=== PATIENT | female | born 1945 | race Caucasian/White ===

== ENCOUNTER → 2016-12-16 | Outpatient (CLI) | payer OTHER, MEDICARE | END | disposition home or self-care (01) | LOC: C.LABMFLN 09:08 | PROVIDERS: ATTEND Family Medicine | DX: R10.9 Unspecified abdominal pain (principal) ==

== ENCOUNTER → 2017-01-08 | Outpatient (CLI) | payer OTHER, MEDICARE ==
[2017-01-08 13:34] LABS: URINE APPEARANCE CLEAR (CLEAR); URINE BILIRUBIN NEG (NEG); URINE COLOR YELLOW; URINE EPITHELIAL CELL AUTO 0-5 /lpf (0-5); URINE NITRITE NEG (NEG); URINE PH 5.5 (4.5-7.5); URINE SPECIFIC GRAVITY 1.017 (1.000-1.030); UROBILINOGEN NEG (NEG)
[2017-01-08 13:43] LABS: MANUAL MICROSCOPIC REQUIRED? NO; REVIEW REQ? NO
== END | disposition home or self-care (01) ==
LOC: C.LABMFLN 08:20
PROVIDERS: ATTEND Urology
DX: R39.9 Unspecified symptoms and signs involving the genitourinary system (principal)

== ENCOUNTER → 2017-03-21 | Outpatient (CLI) | payer OTHER, MEDICARE ==
[2017-03-21 13:17] LABS: BASO % 0.8 %; BASO ABS # 0.04 K/uL (0-0.2); COMPLETE YES; EOS % 3.8 %; HEMATOCRIT 42.1 % (37-47); IG% 0.2 %; LYMPH % 31.8 %; LYMPH ABS # 1.61 K/uL (1.2-3.4); MEAN CELL VOLUME 86.8 fL (80-100); MEAN CORPUSCULAR HEMOGLOBIN 29.1 pg (25-34); MEAN CORPUSCULAR HGB CONC 33.5 g/dl (32-36); MEAN PLATELET VOLUME 9.7 fL (7.4-10.4); MONO % 8.5 %; NEUT % 54.9 %; PLATELET COUNT 239 K/uL (130-400); RED BLOOD COUNT 4.85 M/uL (4.2-5.4); WHITE BLOOD COUNT 5.06 K/uL (4.8-10.8)
[2017-03-21 13:38] LABS: ALT/SGPT 29 U/L (12-78); AMYLASE 50 U/L (25-115); BLOOD UREA NITROGEN 16 mg/dl (7-18); BUN/CREATININE RATIO 19.9 (10-20); CARBON DIOXIDE 27 mmol/L (21-32); CHLORIDE 106 mmol/L (98-107); GLUCOSE 133 mg/dl (70-99); POTASSIUM 3.7 mmol/L (3.5-5.1); SODIUM 141 mmol/L (136-145)
[2017-03-21 13:43] LABS: ALB/GLOB RATIO 1.1 (0.9-2); ALKALINE PHOSPHATASE 63 U/L (45-117); AST/SGOT 22 U/L (15-37)
== END | disposition home or self-care (01) ==
LOC: C.LABMFLN 09:10
PROVIDERS: ATTEND Family Medicine
DX: R07.89 Other chest pain (principal)

== ENCOUNTER → 2017-10-31 | Outpatient (CLI) | payer OTHER, MEDICARE ==
[2017-10-31 12:39] LABS: BASO % 1.3 %; BASO ABS # 0.06 K/uL (0-0.2); EOS % 3.2 %; EOS ABS # 0.15 K/uL (0-0.5); HEMATOCRIT 41.7 % (37-47); HEMOGLOBIN 13.8 g/dL (12.0-16.0); IG# 0.01 K/uL (0.00-0.02); LYMPH % 31.2 %; LYMPH ABS # 1.48 K/uL (1.2-3.4); MEAN CELL VOLUME 88.5 fL (80-100); MEAN CORPUSCULAR HEMOGLOBIN 29.3 pg (25-34); MEAN CORPUSCULAR HGB CONC 33.1 g/dl (32-36); MEAN PLATELET VOLUME 10.3 fL (7.4-10.4); MONO % 9.7 %; MONO ABS # 0.46 K/uL (0.11-0.59); NEUT % 54.4 %; NEUT ABS # 2.58 K/uL (1.4-6.5); PLATELET COUNT 231 K/uL (130-400); RED CELL DISTRIBUTION WIDTH CV 12.9 % (11.5-14.5); RED CELL DISTRIBUTION WIDTH SD 41.1 fL (36.4-46.3); WHITE BLOOD COUNT 4.74 K/uL (4.8-10.8)
[2017-10-31 13:34] LABS: ALBUMIN 3.8 gm/dl (3.4-5.0); ALKALINE PHOSPHATASE 66 U/L (45-117); BLOOD UREA NITROGEN 19 mg/dl (7-18); CALCIUM 9.1 mg/dl (8.5-10.1); CARBON DIOXIDE 30 mmol/L (21-32); CREATININE 0.75 mg/dl (0.60-1.20); GLUCOSE 104 mg/dl (70-99); POTASSIUM 3.8 mmol/L (3.5-5.1); SODIUM 139 mmol/L (136-145)
[2017-10-31 13:43] LABS: ALT/SGPT 34 U/L (12-78); AST/SGOT 21 U/L (15-37); CHOLESTEROL 194 mg/dl (0-200); LDL CHOLESTEROL CALCULATED 119 mg/dl; TOTAL PROTEIN 7.5 gm/dl (6.4-8.2)
== END | disposition home or self-care (01) ==
LOC: C.LABMFLN 09:06
PROVIDERS: ATTEND Family Medicine
DX: I10 Essential (primary) hypertension (principal); E78.5 Hyperlipidemia, unspecified; E03.9 Hypothyroidism, unspecified

== ENCOUNTER 2020-04-13 14:29 | Inpatient (IN) ==
--- NOTE | 2020-04-13 15:06 | XRay Report ---
XR chest 1V portable HISTORY: 75 years-old Female Chest Pain acute atypical chest pain COMPARISON: None TECHNIQUE: Portable AP view of the chest FINDINGS: Cardiac silhouette is moderately enlarged. Calcified plaque of the thoracic aortic arch. No pneumotho rax, large pleural effusion or overt pulmonary edema. Minimal bibasilar densities suggest probable at electasis. Degenerative changes of the shoulders and spine. Findings are suggestive prior partial res ection of the distal clavicles. Surgical anchors project over the left greater tuberosity. Convex rig ht curvature of the midthoracic spine. IMPRESSION: No acute process. ACT 112: Negative or not required by law. The above report was generated using voice recognition software. It may contain grammatical, syntax o r spelling errors. Electronically signed by: Emir Albarado M.D. 04/13/2020 3:05 PM
[2020-04-13 15:41] LABS: Basophils # (auto) 0.04 K/uL (0-0.2); Basophils % (auto) 0.6 %; Eosinophils % (auto) 1.5 %; Hematocrit (blood only) 41.1 % (37-47); Hemoglobin 13.8 g/dL (12.0-16.0); Immature Granulocytes # (auto) 0.01 K/uL (0.00-0.02); Immature Granulocytes % (auto) 0.1 %; Lymphocytes # (auto) 2.52 K/uL (1.2-3.4); Lymphocytes % (auto) 37.7 %; Mean Corpuscular Hemoglobin 28.7 pg (25-34); Mean Corpuscular Hgb Conc 33.6 g/dL (32-36); Mean Corpuscular Volume 85.4 fL (80-100); Monocytes # (auto) 0.48 K/uL (0.11-0.59); Monocytes % (auto) 7.2 %; Neutrophils # (auto) 3.53 K/uL (1.4-6.5); Neutrophils % (auto) 52.9 %; Platelet Count 241 K/uL (130-400); RDW Coefficient of Variation 12.8 % (11.5-14.5); RDW Standard Deviation 40.3 fL (36.4-46.3); Red Blood Count 4.81 M/uL (4.2-5.4); White Blood Count 6.68 K/uL (4.8-10.8)
[2020-04-13 16:06] LABS: Alanine Aminotransferase 34 U/L (12-78); Albumin Level 3.8 gm/dl (3.4-5.0); Alkaline Phosphatase 85 U/L (45-117); Aspartate Aminotransferase 25 U/L (15-37); BUN Creatinine Ratio 23.7 (10-20); Bilirubin,Total 0.5 mg/dl (0.2-1); Blood Urea Nitrogen 18 mg/dl (7-18); Carbon Dioxide 28 mmol/L (21-32); Chloride 107 mmol/L (98-107); Creatinine Clr Calc Pharmacy 63.3 ml/min; Est GFR (Non-African American) 78.5; Globulin 3.7 gm/dl (2.5-4.0); Glucose 147 mg/dl (70-99); Lipase 85 U/L (73-393); Potassium 3.5 mmol/L (3.5-5.1); Sodium 141 mmol/L (136-145); Total Protein 7.5 gm/dl (6.4-8.2); Troponin I < 0.015 ng/ml (0-0.045)
[2020-04-13 17:38] LABS: D Dimer 400 ug/L FEU (0-500); Partial Thromboplastin Ratio 0.9; Partial Thromboplastin Time 26.2 Seconds (21.0-31.0); Prothrombin Time 10.9 Seconds (9.0-12.0)
--- NOTE | 2020-04-13 17:40 | Emergency Department Note ---
Impression & Plan Substernal chest pain ED Provider Note NAME: ZENOBIA PERRY AGE: 75 SEX: F ARRIVES VIA: Walk-In INFORMANT: [Patient] ED PROVIDER(S): Govind Denise MD CHIEF COMPLAINT: Chest pain PLAN: Disposition: Admitted Condition: [Good] MEDICAL DECISION MAKING: Patient presented with exertional chest pain. Her EKG was unremarkable. The patient had a unremarkable CBC, chemistry panel, troponin and d-dimer. Chest x- ray negative. Given her family history and exertional chest discomfort further management in the hospital was felt to be appropriate for cardiac rule out and consideration for stress testing. The patient was pain-free during her time in the emergency department. She was given aspirin. Consultation was made with internal medicine for further evaluation. Triage Nursing notes reviewed and agree them. Vital Signs: reviewed and remarkable for [no significant abnormalities] Differential diagnosis: Cardiac ischemia, aortic dissection, pulmonary embolism, pneumothorax, pneumonia, pericarditis, myocarditis, esophageal rupture, GERD, cholecystitis, pancreatitis, musculoskeletal, as well as other pathologies. ER treatment provided: Oral aspirin Diagnostics interpreted by me: ECG:Rate: 98 Rhythm:Normal sinus [place]:Normal QRS:Normal ST segements:No elevation or depression. Nonspecific ST Other:No PACs or PVCs Cardiac Monitoring:Cardiac monitoring ordered by me: The patient was placed on continuous cardiac monitoring and observed. It revealed a normal sinus rhythm at 81 beats per minute without ectopy or evidence of dysrhythmia. Laboratory studies: [See below]unremarkable CBC, chemistry panel, d-dimer, coags, troponin Imaging studies: Chest x-ray. Findings: A chest x-ray was performed and revealed no pneumothorax, effusion, infiltrate, pulmonary edema, free air under the diaphragm, or wide mediastinum. Impression: No acute disease. Consultation(s): [none] HPI: The patient is a 75 year old female who presents to the Emergency Room with complaints of exertional chest pain. This started 4 days ago and is progressing. The patient also notes the following associated symptoms, back and shoulder pain, nausea. The patient has taken aspirin for relieving factors. Current pain is rated as 0/10. Pt denies LOC, headache, fevers, chills, diaphoresis, visual changes, neck pain, breathing difficulties, nausea, vomiting, abdominal pain, back pain, melena, hematochezia, urinary symptoms, numbness, weakness, lymphadenopathy, rash, or other complaints. ROS: See above HPI for pertinent positives & negatives. A total of [10] systems reviewed and were otherwise negative. PAST MEDICAL HISTORY:[See Below] hyperlipidemia PAST SURGICAL HISTORY:[See Below] FAMILY HISTORY:[See Below] SOCIAL HISTORY:[See Below] negative smoking HOME MEDICATIONS:[See Below] ALLERGIES:[See Below] VITALS:[See Below] PHYSICAL EXAMINATION: GENERAL: Awake, alert, well-appearing, in no distress HENT: Normocephalic, atraumatic. Oropharynx unremarkable. EYES: Normal conjunctiva. Sclera non-icteric. NECK: Inspection normal. Non-tender. Supple. No nuchal rigidity. FROM. No m asses. RESPIRATORY: Clear to auscultation. No wheezes. No rales. Normal respiratory effort. CARDIAC: Normal rate. Normal rhythm. No murmurs. No rubs. Extremities warm and well perfused. Pulses equal. No JVD. GI: Soft, non-distended. No tenderness to palpation. No rebound or guarding. No masses. RECTAL: Deferred. MUSCULOSKELETAL: Atraumatic. Chest examination reveals no tenderness. The back is symmetrical on inspection without obvious abnormality. There is no CVA tenderness to palpation. No joint edema. LOWER EXTREMITIES: Calves are equal size bilaterally and non-tender. No edema. No discoloration. NEURO: Normal sensorium. No sensory or motor deficits noted. SKIN: No rash or jaundice noted. ED COURSE: [Critical Care:] [None] Govind Denise MD Past Med/Surg History Medical History Acid reflux disease (Chronic) Benign essential hypertension (Chronic) Carotid atherosclerosis (Chronic) H/O radioactive iodine thyroid ablation Hyperlipidemia (Chronic) Hypothyroidism (Chronic) PSVT (paroxysmal supraventricular tachycardia) (Chronic) Syrinx of spinal cord (Chronic) Type 2 diabetes mellitus Surgical History H/O knee surgery H/O rotator cuff surgery History of bladder surgery S/P cholecystectomy S/P colonoscopy S/P hysterectomy Family History Father Coronary heart disease Mother Coronary heart disease Diabetes Brother Diabetes Sister Diabetes Unknown Kidney stones Social History Preferred Language: Yakut Feels Safe at Home: Yes Smoking Status: Former smoker Allergies Allergies Allergy/AdvReac Type Severity Reaction Status Date / Time Cephalosporins Allergy Unknown Unknown Verified 04/13/20 16:24 CEPHALEXIN HCL (Generic Allergy Unknown Y Uncoded 04/13/20 16:24 Allergy) KEFLEX=HIVES Allergy Unknown Unknown Uncoded 04/13/20 16:24 Home Meds Home Medications Medication Instructions Recorded Confirmed fluticasone propionate 2 sprays INTRANASAL DAILY PRN 04/13/20 04/13/20 levothyroxine 150 mcg PO .QSUNDAY 04/13/20 04/13/20 Previous Rx's Medication Instructions Recorded multivitamin 1 tab PO DAILY #90 tab 05/04/19 levothyroxine 125 mcg tablet 125 mcg PO .COMPLEX #90 tab 12/27/19 omeprazole 20 mg capsule,delayed 20 mg PO DAILY #90 cap 12/27/19 release lisinopril 20 1 tab PO DAILY #90 tab 01/21/20 mg-hydrochlorothiazide 12.5 mg tablet meloxicam 7.5 mg tablet 7.5 mg PO DAILY PRN #90 tab 03/27/20 Results & Data (ED) Vital Signs Vital Signs - 24 hr 04/13/20 14:36 04/13/20 15:52 04/13/20 17:12 Temperature 36.7 C Temperature Source Oral Pulse Rate 101 H 86 Pulse Rate [Apical] 86 79 Pulse Rhythm Regular Pulse Rhythm [Apical] Regular Pulse Strength [Apical] Normal Respiratory Rate 18 16 20 Respiratory Effort / Characteristics Non-Labored Spontaneous Non-Labored Spontaneous Non-Labored Spontaneous Respiratory Depth Normal Normal Normal Respiratory Pattern Regular Regular Regular Blood Pressure 155/81 H Blood Pressure [Right Arm] 144/62 H 138/88 Blood Pressure Mean 105 Blood Pressure Mean [Right Arm] 89 104 Blood Pressure Position Sitting Blood Pressure Position [Right Arm] Sitting Sitting Pulse Oximetry 96 96 93 Oxygen Delivery Method Room Air Room Air Room Air Sepsis Recent Fever Within 48 Hours No Sepsis New/Unexplained Change in Mental Status No Sepsis Action Taken by Nursing No Action Required Laboratory Data Result diagrams: 04/13/20 15:25 04/13/20 15:25 Lab Results 04/13/20 04/13/20 04/13/20 Range/Units 15:25 15:25 15:25 WBC 6.68 (4.8-10.8) K/uL RBC 4.81 (4.2-5.4) M/uL Hgb 13.8 (12.0-16.0) g/dL Hct 41.1 (37-47) % MCV 85.4 (80-100) fL MCH 28.7 (25-34) pg MCHC 33.6 (32-36) g/dL RDW Std Deviation 40.3 (36.4-46.3) fL RDW Coeff of Chris 12.8 (11.5-14.5) % Plt Count 241 (130-400) K/uL MPV 10.0 (7.4-10.4) fL Immature Gran % (Auto) 0.1 % Neut % (Auto) 52.9 % Lymph % (Auto) 37.7 % [place] % (Auto) 7.2 % Eos % (Auto) 1.5 % Baso % (Auto) 0.6 % Neut # (Auto) 3.53 (1.4-6.5) K/uL Lymph # (Auto) 2.52 (1.2-3.4) K/uL [place] # (Auto) 0.48 (0.11-0.59) K/uL Eos # (Auto) 0.10 (0-0.5) K/uL Baso # (Auto) 0.04 (0-0.2) K/uL Immature Gran # (Auto) 0.01 (0.00-0.02) K/uL PT Cancelled INR Cancelled APTT Cancelled PTT Ratio Cancelled D-Dimer Cancelled Sodium 141 (136-145) mmol/L Potassium 3.5 (3.5-5.1) mmol/L Chloride 107 (98-107) mmol/L Carbon Dioxide 28 (21-32) mmol/L Anion Gap 6.0 (3-11) BUN 18 (7-18) mg/dl Creatinine 0.75 (0.6-1.2) mg/dl Est Cr Clr Drug Dosing 63.3 ml/min Est GFR ( Amer) 91.0 Est GFR (Non-Af Amer) 78.5 BUN/Creatinine Ratio 23.7 H (10-20) Glucose 147 H (70-99) mg/dl Calcium 9.0 (8.5-10.1) mg/dl Magnesium 2.0 (1.8-2.4) mg/dl Total Bilirubin 0.5 (0.2-1) mg/dl AST 25 (15-37) U/L ALT 34 (12-78) U/L Alkaline Phosphatase 85 (45-117) U/L Troponin I < 0.015 (0-0.045) ng/ml Total Protein 7.5 (6.4-8.2) gm/dl Albumin 3.8 (3.4-5.0) gm/dl Globulin 3.7 (2.5-4.0) gm/dl Albumin/Globulin Ratio 1.0 (0.9-2) Lipase 85 (73-393) U/L Specimen Hemolysis 04/13/20 Range/Units 17:10 WBC (4.8-10.8) K/uL RBC (4.2-5.4) M/uL Hgb (12.0-16.0) g/dL Hct (37-47) % MCV (80-100) fL MCH (25-34) pg MCHC (32-36) g/dL RDW Std Deviation (36.4-46.3) fL RDW Coeff of Chris (11.5-14.5) % Plt Count (130-400) K/uL MPV (7.4-10.4) fL Immature Gran % (Auto) % Neut % (Auto) % Lymph % (Auto) % [place] % (Auto) % Eos % (Auto) % Baso % (Auto) % Neut # (Auto) (1.4-6.5) K/uL Lymph # (Auto) (1.2-3.4) K/uL [place] # (Auto) (0.11-0.59) K/uL Eos # (Auto) (0-0.5) K/uL Baso # (Auto) (0-0.2) K/uL Immature Gran # (Auto) (0.00-0.02) K/uL PT 10.9 INR 1.0 APTT 26.2 PTT Ratio 0.9 D-Dimer 400 Sodium (136-145) mmol/L Potassium (3.5-5.1) mmol/L Chloride (98-107) mmol/L Carbon Dioxide (21-32) mmol/L Anion Gap (3-11) BUN (7-18) mg/dl Creatinine (0.6-1.2) mg/dl Est Cr Clr Drug Dosing ml/min Est GFR ( Amer) Est GFR (Non-Af Amer) BUN/Creatinine Ratio (10-20) Glucose (70-99) mg/dl Calcium (8.5-10.1) mg/dl Magnesium (1.8-2.4) mg/dl Total Bilirubin (0.2-1) mg/dl AST (15-37) U/L ALT (12-78) U/L Alkaline Phosphatase (45-117) U/L Troponin I (0-0.045) ng/ml Total Protein (6.4-8.2) gm/dl Albumin (3.4-5.0) gm/dl Globulin (2.5-4.0) gm/dl Albumin/Globulin Ratio (0.9-2) Lipase (73-393) U/L Specimen Hemolysis Administered Medications Atorvastatin Calcium (Lipitor) 40 mg PO QPM [facility] Stop: 05/13/20 20:59 Last Admin: 04/13/20 21:09 Dose: 40 mg Documented by: [id number] Heparin Sodium/Dextrose (Heparin Sodium/Dextrose) 25,000 units in 500 mls @ 16 mls/hr IV .Q24H [facility]; Protocol Stop: 05/13/20 20:44 Last Admin: 04/13/20 21:10 Dose: 800 units/hr, 16 mls/hr Documented by: [id number] Cosigned by: [id number] Insulin Aspart (Novolog Flexpen) 0 units SC ACHS [facility] Stop: 05/13/20 20:59 Last Admin: 04/13/20 21:09 Dose: Not Given Documented by: [id number] Discontinued Medications Aspirin (Aspirin) 324 mg PO NOW STA Stop: 04/13/20 18:48 Last Admin: 04/13/20 20:03 Dose: 324 mg Documented by: [id number] Heparin Sodium (Porcine) 4,000 (units/ Syringe) 4 mls @ 10 mls/min IV ONE ONE Stop: 04/13/20 21:01 Last Admin: 04/13/20 21:09 Dose: 10 mls/min Documented by: [id number] Cosigned by: [id number] Lisinopril (Zestril) 20 mg PO NOW ONE Stop: 04/13/20 21:01 Last Admin: 04/13/20 21:26 Dose: 20 mg Documented by: [id number] Metoprolol Tartrate (Lopressor) 25 mg PO ONE STA Stop: 04/13/20 19:25 Last Admin: 04/13/20 20:35 Dose: Not Given Documented by: [id number] Metoprolol Tartrate (Lopressor) Confirm Administered Dose 50 mg .ROUTE .STK-MED ONE Stop: 04/13/20 20:00 Last Admin: 04/13/20 20:04 Dose: 25 mg Documented by: [id number] Potassium Chloride (Klor-Con M20) 20 meq PO ONE ONE Stop: 04/13/20 20:31 Last Admin: 04/13/20 21:09 Dose: 20 meq Documented by: [id number] Discharge Plan Visit Data *Final* Discharge Date/Time: 04/13/20 19:55 Chief Complaint: Chest Pain Stated Complaint: CHEST PAINS, BACK PAIN, REFERRED BY DOC ED Provider: Govind Denise Discharge Problem: Substernal chest pain Patient Disposition: Admitted As Inpatient Discharge Instructions Interventions: ED Discharge Assessment Last Done: 04/13/20 19:55
--- NOTE | 2020-04-13 18:32 | History & Physical Report ---
Date of Service April 13, 2020 Assessment & Plan (1) Unstable angina: No chest pain at rest but having increasing frequency of chest pain over the past 4 days with resolution at rest on each occasion. No current chest pain. Troponin negative. Highly suspicious based on history and risk factors. Heart score 6 (moderate) Admit to PCU - monitor on telemetry for arrhythmias overnight Serial troponins overnight - expect to be negative based on history Stop meloxicam ASA 324mg PO chew in ER, then 81mg QAM Start metoprolol tartrate 25mg PO NOW, then twice daily Heparin low-dose IV drip with bolus Nitroglycerin SL and EKG with chest pain overnight Heart healthy, low-sodium, type II diabetic diet Consult cardiology in AM, NPO after midnight for consideration of cardiac catheterization (discussed with patient I would not recommend a stress test given her chest pain history and risk factors, but will leave the final decision up to cardiology) (2) Chest pain: Given consistency of exertional chest pain relieved with rest this is highly suspicious to be unstable angina as above has increasing in frequency, severity and duration. Lower likelihood of gastrointestinal cause given history of Weber's esophagus and on one occasion associated with food and belching. If cardiac cath unremarkable will consider this etiology further. (3) Hyperlipidemia: September 2019 - total cholesterol 200, LDL 117, HDL 48. Given likelihood of unstable angina will start atorvastatin 40 mg p.o. at bedtime with repeat lipid panel in a.m. (4) Benign essential hypertension: Stop her usual lisinopril/HCTZ in favor of optimizing cardiac medications Continue lisinopril 20 mg p.o. daily Start metoprolol tartrate 25 mg twice daily (5) Claudication: Classical symptoms of peripheral vascular disease. Although she reports a calf pain down to poor footwear with fibrosis benign tissue growths on her ankle. Recommend outpatient ultrasound arterial Doppler with her PCP or knitter mechanic (6) Type 2 diabetes mellitus: HbA1c diagnostic of diabetes at 6.6 in September. Will repeat in a.m. Patient reportedly told she has borderline diabetes and did not want to go on medication previously. We had an extensive discussion regarding metformin use coming out of hospital if coronary artery disease is confirmed. If HbA1c greater than 5.7 would recommend metformin started on discharge if coronary artery disease confirmed. Discussed weight loss of 5 to 10% with almost certainly bring her out of a diabetic range. BSG AC at bedtime while inpatient with NovoLog sliding scale for correction only. Add basal dose if total daily dose greater than 10 units. Type II diabetic diet (7) Acid reflux disease: Switch omeprazole for pantoprazole as per hospital formulary (8) Hypothyroidism: Continue outpatient levothyroxine dosing No need for repeat TSH testing in the setting of unstable angina would not be enrollment representative (9) DVT prophylaxis: Heparin IV drip as above Admission and Anticipated Discharge Date Admission Date: 04/13/2020 History of Present Illness Chief Complaint: Chest pain Primary Care Provider: Kalpana Barr MD Kristen Jacobs is a 75 year old female with PMHx T2DM (borderline), hyperlipidemia, obesity, hypertension who presents to the ER with 4 days of exertional chest pain. She reports increasing severity, frequency and duration of this exertional pain over these 4 days. Last episode was today at 11:30am with minimal exertion (cutting hair). Longest time it has lasted is 10 minutes, always relieves with rest. Unknown how many episodes she is having a day but has been unable to exert herself significantly without the chest pain since it started 4 days ago. She was taking a daily aspirin for primary prevention up until 1 year ago. With this ongoing chest pain she has been taking aspirin 81mg PO usually twice daily. She has had one episode after eating an egg salad with relief with belching although this was only the one occasion and the rest have been very exertional related. She has a history of Weber's esophagus which resolved with omeprazole use (EGD was approximately 15 years ago). She reports her heartburn is under control with omeprazole and she has not been eating any exacerbating foods. Of note she also has claudication (bilateral calf pain on walking) which she has previously felt was her poor footwear with benign fibrous lumps in her ankles making her gait poor. This has been going on for at least the last year. She is a former smoker (although only for 9 months after her divorce), 1- pack/day, quit 1984. Hyperlipidemia - PCP recommended statin but patient refused. Diabetes, HbA1C recently diagnosed in September and refused metformin (she has heard too many bad things about this). Family history: Father with CAD ?started around 64-65yo angina, bypass Mother in 60s had a stroke Brother ?heart issue, no bypass or stents, diabetes, Sister - none Allergies Allergy/AdvReac Type Severity Reaction Status Date / Time Cephalosporins Allergy Unknown Unknown Verified 04/13/20 16:24 CEPHALEXIN HCL (Generic Allergy Unknown Y Uncoded 04/13/20 16:24 Allergy) KEFLEX=HIVES Allergy Unknown Unknown Uncoded 04/13/20 16:24 Home Medications Home Medications Medication Instructions Recorded Confirmed Type multivitamin 1 tab PO DAILY #90 tab 05/04/19 04/13/20 Rx levothyroxine 125 mcg tablet 125 mcg PO .COMPLEX #90 tab 12/27/19 04/13/20 Rx omeprazole 20 mg capsule,delayed 20 mg PO DAILY #90 cap 12/27/19 04/13/20 Rx release lisinopril 20 1 tab PO DAILY #90 tab 01/21/20 04/13/20 Rx mg-hydrochlorothiazide 12.5 mg tablet meloxicam 7.5 mg tablet 7.5 mg PO DAILY PRN #90 tab 03/27/20 04/13/20 Rx fluticasone propionate 2 sprays INTRANASAL DAILY PRN 04/13/20 04/13/20 History levothyroxine 150 mcg PO .QSUNDAY 04/13/20 04/13/20 History Past Med/Surg History Medical History Acid reflux disease (Chronic) Benign essential hypertension (Chronic) Carotid atherosclerosis (Chronic) H/O radioactive iodine thyroid ablation Hyperlipidemia (Chronic) Hypothyroidism (Chronic) PSVT (paroxysmal supraventricular tachycardia) (Chronic) Syrinx of spinal cord (Chronic) Type 2 diabetes mellitus Surgical History H/O knee surgery H/O rotator cuff surgery History of bladder surgery S/P cholecystectomy S/P colonoscopy S/P hysterectomy Family History Father Coronary heart disease Mother Coronary heart disease Diabetes Brother Diabetes Sister Diabetes Unknown Kidney stones Social History Preferred Language: Swedish Feels Safe at Home: Yes Smoking Status: Former smoker Review of Systems Review of Systems: All systems reviewed & are unremarkable except as noted in HPI & below Physical Exam Constitutional: well developed, well nourished and + morbidly obese; no acute distress Eyes: PERRL, conjunctivae normal, anicteric sclerae ENMT: external ear and nose normal, oropharynx normal Neck: trachea midline Respiratory: normal respiratory effort, lungs clear to auscultation Cardiovascular: Rate/Rhythm: regular rate and regular rhythm Heart Sounds: no murmur Vessels: posterior tibial pulses present, dorsalis pedis pulses present and radial pulses present; no JVD Extremities: normal capillary refill and + pedal edema (Trace bilateral); no calf tenderness Chest (Breasts): Additional Comments: Unable to reproduce chest pain on palpation Gastrointestinal (Abdomen): normal bowel sounds, soft, nontender, no hepatosplenomegaly Musculoskeletal: no cyanosis or clubbing, extremities motor strength 5/5 Skin: no rashes, warm and dry Neurologic: moves all extremities and awake; no focal motor deficits and not confused Speech / Cognition: normal speech Motor/Sensory: no tremor, no pronator drift and no sensory deficit Psychiatric: A+Ox3, euthymic affect Genitourinary: no CVA tenderness Lymphatic: no cervical or axillary lymphadenopathy Results & Data Results & Data ([facility]) Vital Signs (Past 12 Hours) Vital Signs Temp Pulse Pulse Resp BP BP Pulse Ox 04/13/20 17:12 79 20 138/88 93 04/13/20 15:52 86 86 16 144/62 H 96 04/13/20 14:36 36.7 C 101 H 18 155/81 H 96 Diagnostic Findings XR chest 1V portable IMPRESSION: No acute process. ECG Indication: chest pain Rate (beats per minute): 98 Rhythm: normal sinus Findings: + acute ischemic change (Mild nonspecific ST abnormalities (see below)) Comparison ECG Date: from (March 23, 2001) Change: the following changes noted (Very mild ST depression (non pathological) in V3 to V6 is new, dynamically improved on later EKG) Code Status & VTE Plan Code Status Full VTE Prophylaxis Plan VTE Prophylaxis will be ordered: Yes PG Care Time/CCT Total # of Minutes Spent Total Time Spent with Patient: Total time spent is greater than 50% in coordination of care (as documented) at patient's floor/unit and/or counseling patient: Coding Level of Care Code 73296 Initial Inpt Care Lvl 3 Diagnoses Unstable angina I20.0 Chest pain I20.0 Chest pain type: chest pain due to myocardial ischemia Ischemic chest pain type: unstable angina pectoris Hyperlipidemia E78.1 Hyperlipidemia type: pure hypertriglyceridemia Benign essential hypertension I10 Claudication I73.9 Type 2 diabetes mellitus E11.9 Diabetes mellitus complication status: without complication Diabetes mellitus detention insulin use: without termite exterminator use Acid reflux disease K21.9 Esophagitis presence: without esophagitis Hypothyroidism E89.0 Hypothyroidism type: postablative DVT prophylaxis Z29.9 (1) Type 2 diabetes mellitus Diabetes mellitus complication status: without complication Diabetes mellitus detention insulin use: without detention use Qualified Code(s): E11.9 - Type 2 diabetes mellitus without complications (2) Hyperlipidemia Hyperlipidemia type: pure hypertriglyceridemia Qualified Code(s): E78.1 - Pure hyperglyceridemia (3) Hypothyroidism Hypothyroidism type: postablative Qualified Code(s): E89.0 - Postprocedural hypothyroidism (4) Acid reflux disease Esophagitis presence: without esophagitis Qualified Code(s): K21.9 - Gastro- esophageal reflux disease without esophagitis (5) Chest pain Chest pain type: chest pain due to myocardial ischemia Ischemic chest pain type: unstable angina pectoris Qualified Code(s): I20.0 - Unstable angina
[2020-04-13] MEDS ORDERED: ASPIRIN CHEW 324 MG PO STA (18:47)
[2020-04-13] MEDS ORDERED: METOPROLOL TARTRATE 25 MG TAB PO STA (19:24)
[2020-04-13] MEDS ORDERED: METOPROLOL TARTRATE 50 MG TAB ONE (19:59)
[2020-04-13] MEDS ORDERED: CARBOHYDRATES FOR HYPOGLYCEMIA PO PRN (20:17)
[2020-04-13] MEDS ORDERED: GLUCAGON FOR INJ 1 MG VIAL SQ PRN (20:17)
[2020-04-13] MEDS ORDERED: ALUMINUM/MAGNESIUM SUSP 30 ML UDC PO PRN (20:17)
[2020-04-13] MEDS ORDERED: ACETAMINOPHEN 325 MG TAB PO PRN (20:17)
[2020-04-13] MEDS ORDERED: DEXTROSE 50% 50 ML SYRINGE IV PRN (20:17)
[2020-04-13] MEDS ORDERED: GLUCOSE 10 TABS/TUBE PO PRN (20:17)
[2020-04-13] MEDS ORDERED: POLYETHYLENE (MIRALAX) 17 GM PACK PO PRN (20:17)
[2020-04-13] MEDS ORDERED: MAGNESIUM HYDROXIDE SUSP 30 ML UDC PO PRN (20:17)
[2020-04-13] MEDS ORDERED: ONDANSETRON INJ 2 MG/ML 2 ML VIAL IV PRN (20:17)
[2020-04-13] MEDS ORDERED: GLUCOSE 40% GEL 15 GM TUBE PO PRN (20:17)
[2020-04-13] MEDS ORDERED: POTASSIUM CHLORIDE 20 MEQ TABCR PO ONE (20:30)
[2020-04-13] MEDS ORDERED: Heparin IV Low Dose WITH Bolus IV SCH (20:37)
[2020-04-13] MEDS ORDERED: NITROGLYCERIN SL 0.4 MG/TAB TAB SL PRN (20:40)
[2020-04-13] MEDS ORDERED: HEPARIN SODIUM/DEXTROSE 25,000 UNITS/500 ML BAG IV SCH (20:45)
[2020-04-13] MEDS ORDERED: HEPARIN IV BOLUS 4,000 UNITS in SYRINGE 0 ML IV ONE (21:00)
[2020-04-13] MEDS ORDERED: lisinopriL 20 MG TAB PO ONE (21:00)
[2020-04-13] MEDS ORDERED: ATORVASTATIN 40 MG TAB PO SCH (21:00)
[2020-04-13] MEDS: INSULIN ASPART 100 UNITS/ML 3 ML PEN SC SCH (21:09)
--- NOTE | 2020-04-14 05:08 | Electrocardiogram Report ---
Test Reason : Blood Pressure : / mmHG Vent. Rate : 098 BPM Atrial Rate : 098 BPM P-R Int : 172 ms QRS Dur : 088 ms QT Int : 354 ms P-R-T Axes : 066 018 037 degrees QTc Int : 451 ms Normal sinus rhythm Nonspecific ST abnormality Abnormal ECG When compared with ECG of 23-MAR-2001 16:36, Nonspecific ST abnormality is now Present Confirmed by Pedro Rodriguez [id number] on 04/14/2020 5:07:49 AM Referred By: Kalpana Barr Confirmed By:Pedro Rodriguez
[2020-04-14] MEDS ORDERED: LEVOTHYROXINE SODIUM 125 MCG TABLET PO SCH (06:30)
[2020-04-14 07:06] LABS: Basophils # (auto) 0.05 K/uL (0-0.2); Basophils % (auto) 0.9 %; Eosinophils # (auto) 0.19 K/uL (0-0.5); Eosinophils % (auto) 3.3 %; Hematocrit (blood only) 39.7 % (37-47); Hemoglobin 13.3 g/dL (12.0-16.0); Immature Granulocytes # (auto) 0.01 K/uL (0.00-0.02); Immature Granulocytes % (auto) 0.2 %; Lymphocytes # (auto) 2.56 K/uL (1.2-3.4); Lymphocytes % (auto) 44.8 %; Mean Corpuscular Hemoglobin 29.4 pg (25-34); Mean Corpuscular Hgb Conc 33.5 g/dL (32-36); Mean Corpuscular Volume 87.6 fL (80-100); Monocytes # (auto) 0.54 K/uL (0.11-0.59); Monocytes % (auto) 9.4 %; Neutrophils # (auto) 2.37 K/uL (1.4-6.5); Neutrophils % (auto) 41.4 %; Platelet Count 225 K/uL (130-400); RDW Standard Deviation 41.6 fL (36.4-46.3); Red Blood Count 4.53 M/uL (4.2-5.4); White Blood Count 5.72 K/uL (4.8-10.8)
[2020-04-14 07:16] LABS: Partial Thromboplastin Ratio 1.2; Partial Thromboplastin Time 33.4 Seconds (21.0-31.0)
[2020-04-14 07:26] LABS: Estimated Average Glucose 160 mg/dl; Hemoglobin A1C 7.2 % (4.5-5.6)
[2020-04-14 07:27] LABS: BUN Creatinine Ratio 22.9 (10-20); Blood Urea Nitrogen 16 mg/dl (7-18); Calcium 8.9 mg/dl (8.5-10.1); Carbon Dioxide 30 mmol/L (21-32); Chloride 108 mmol/L (98-107); Creatinine Clr Calc Pharmacy 67.7 ml/min; Est GFR (African American) 98.9; Est GFR (Non-African American) 85.4; Glucose 135 mg/dl (70-99); Sodium 143 mmol/L (136-145)
[2020-04-14 07:31] LABS: Chol HDL Ratio 4; Cholesterol 182 mg/dl (0-200); HDL Cholesterol 41 mg/dl; LDL Cholesterol Calculated 103 mg/dl; Triglycerides 190 mg/dl (0-150); Troponin I < 0.015 ng/ml (0-0.045); VLDL Cholesterol 38 mg/dl
[2020-04-14] MEDS: INSULIN ASPART 100 UNITS/ML 3 ML PEN SC SCH ×2 (08:23→13:40)
[2020-04-14] MEDS ORDERED: HEPARIN IV BOLUS 4,500 UNITS in SYRINGE 0 ML IV ONE (08:30)
[2020-04-14] MEDS ORDERED: lisinopriL 20 MG TAB PO SCH (09:00)
[2020-04-14] MEDS ORDERED: PANTOprazole 40 MG TAB PO SCH (09:00)
[2020-04-14] MEDS ORDERED: MULTIVITAMIN TAB PO SCH (09:00)
[2020-04-14] MEDS ORDERED: METOPROLOL TARTRATE 25 MG TAB PO SCH (09:00)
[2020-04-14] MEDS ORDERED: ASPIRIN 81 MG ECTAB PO SCH (09:00)
--- NOTE | 2020-04-14 09:03 | Cardiology Consultation ---
Date of Consultation April 14, 2020 Assessment & Plan (1) Chest pain: (2) Benign essential hypertension: ASSESSMENT/PLAN: 1. Chest pain: Her chest pain is atypical for ischemic heart disease. We discussed ischemic evaluation given her risk factors. Recommend stress echo rather than invasive approach given her atypical symptoms described today. Heparin drip can be discontinued. Her troponins are unremarkable. ECG without dynamic changes. 2. Hypertension: Blood pressure was initially elevated but has since normalized. Can continue current regimen. UPDATE Stress echo has been completed. There were no ischemic changes noted on stress echo imaging. Her exercise tolerance was below expected however she did not experience any chest discomfort and admits that that is the most strenuous exercise that she has done in some time. Given that her chest discomfort did not return during strenuous activity with normal stress echo imaging, would not pursue cardiac catheterization at this time. Recommend further evaluation for noncardiac chest pain. If her symptoms worsen or persist without identifiable cause, further evaluation could be considered at that time. 3. Disposition: Following stress echo which was recommended as above, no further inpatient cardiology evaluation recommended at this time. Further chest discomfort evaluation for noncardiac etiology can be performed by primary service verses PCP. Follow-up with cardiology on an as-needed basis. Patient care communicated with Dr. Rodriguez of the primary hospitalist service. Thank you for allowing me to participate in the care of your patient. Please call for any other questions or concerns. Sincerely, Chauncey Rodriguez M.D. History of Present Illness Reason for Consultation: Chest pain Requesting Physician: Dr. Cueva Attending Physician: Daniel Rodriguez DO History of Present Illness Mrs. Jacobs ('cross in') is a very pleasant 75-year-old female history significant for hypertension, dyslipidemia, and type 2 diabetes. She was hospitalized on 04/13/2020 for chest discomfort concerning for unstable angina and placed on a heparin drip by primary hospitalist service. Cardiology consultation was requested for her chest pain. Four days ago, on Friday, she noted a left sided chest discomfort beneath her left breast described as a jabbing or "needle" sensation. It occurred while laying in bed on her left side. She has had up and the chest discomfort resolved within minutes. She once again laid on her left side and it recurred. Repositioning resolved her symptoms. She took aspirin 81 mg. The next day, she had intermittent chest discomfort throughout the day all episodes lasting only a few minutes before spontaneously resolving. Then, separately, she noted mid back pain at rest intermittently. Her symptoms were nonexertional. Two days ago, she once again noted pain beneath her left breast while in the swimming pool, lasting only a few minutes before spontaneously resolving. She took aspirin 81 mg x2. 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 She also felt nauseated. She is currently chest pain-free. She denies radiation of the pain, diaphoresis, shortness of breath, or other associated symptoms. She denies palpitations, syncope, near-syncope, edema, or bleeding such as melena, hematochezia, or hematuria. She had been walking 1.5 miles at a time until approximately 1.5 months ago when she stopped due to the humid weather. She states that she has lipomas in her feet which causes discomfort when wearing shoes. This limits her exertion. She also states that her legs feel tired with ambulation. Admitting hospitalist service has recommended lower extremity arterial duplex to further investigate, as an outpatient. This can be followed up by her PCP. Review of systems: As above. Review of systems otherwise negative/unremarkable. Family history: Father had CABG in his 60s. Mother with stroke. Social history: She quit smoking years ago after approximately 3 pack years. No significant alcohol. No drugs. She lives at home with her . Her twin granddaughters also live at home with them. She has 2 sons. She is a hairdresser. She is unaccompanied today. Allergies Allergy/AdvReac Type Severity Reaction Status Date / Time Cephalosporins Allergy Unknown Unknown Verified 04/13/20 16:24 CEPHALEXIN HCL (Generic Allergy Unknown Y Uncoded 04/13/20 16:24 Allergy) KEFLEX=HIVES Allergy Unknown Unknown Uncoded 04/13/20 16:24 Home Medications Home Medications Medication Instructions Recorded Confirmed Type multivitamin 1 tab PO DAILY #90 tab 05/04/19 04/13/20 Rx levothyroxine 125 mcg tablet 125 mcg PO .COMPLEX #90 tab 12/27/19 04/13/20 Rx omeprazole 20 mg capsule,delayed 20 mg PO DAILY #90 cap 12/27/19 04/13/20 Rx release lisinopril 20 1 tab PO DAILY #90 tab 01/21/20 04/13/20 Rx mg-hydrochlorothiazide 12.5 mg tablet meloxicam 7.5 mg tablet 7.5 mg PO DAILY PRN #90 tab 03/27/20 04/13/20 Rx fluticasone propionate 2 sprays INTRANASAL DAILY PRN 04/13/20 04/13/20 History levothyroxine 150 mcg PO .QSUNDAY 04/13/20 04/13/20 History Patient History Medical History Acid reflux disease (Chronic) Benign essential hypertension (Chronic) Carotid atherosclerosis (Chronic) H/O radioactive iodine thyroid ablation Hyperlipidemia (Chronic) Hypothyroidism (Chronic) PSVT (paroxysmal supraventricular tachycardia) (Chronic) Syrinx of spinal cord (Chronic) Type 2 diabetes mellitus Surgical History H/O knee surgery H/O rotator cuff surgery History of bladder surgery S/P cholecystectomy S/P colonoscopy S/P hysterectomy Family History (Updated 04/14/20 @ 14:04 by Pedro Rodriguez MD) Father Coronary heart disease Mother Diabetes Stroke Brother Diabetes Sister Diabetes Unknown Kidney stones Social History Preferred Language: Arabic Feels Safe at Home: Yes Smoking Status: Former smoker Physical Exam Physical Exam: Gen.: No acute distress. Alert and oriented. HEENT: Anicteric sclera. Neck: No JVD. No bruits. Normal carotid upstrokes bilaterally. Cardiac: PMI was nonpalpable. No ventricular heave. Regular rate and rhythm. Normal S1-S2. No murmurs, rubs, or gallops. Pulmonary: Clear to auscultation bilaterally without wheezes, rales, or rhonchi. Abdomen: Soft, nontender, nondistended, with normoactive bowel sounds. No bruits noted. Extremities: 2+ radial pulses bilaterally. 2+ posterior tibialis pulses bilaterally. No edema or cyanosis. Psychiatric: Affect appears appropriate. Chest: Nontender to palpation. Results & Data ([facility]) Vital Signs (Past 12 Hours) Vital Signs Temp Pulse Pulse Resp BP Pulse Ox 04/14/20 07:38 36.3 C L 71 16 136/81 97 04/14/20 04:00 36.4 C L 56 L 16 135/85 94 04/14/20 00:45 74 04/14/20 00:22 36.6 C 72 16 176/95 H 94 Laboratory Results Laboratory Results - last 24 hr 04/13/20 04/13/20 04/13/20 15:25 15:25 15:25 WBC 6.68 RBC 4.81 Hgb 13.8 Hct 41.1 MCV 85.4 MCH 28.7 MCHC 33.6 RDW Std Deviation 40.3 RDW Coeff of Chris 12.8 Plt Count 241 MPV 10.0 Immature Gran % (Auto) 0.1 Neut % (Auto) 52.9 Lymph % (Auto) 37.7 Bucks % (Auto) 7.2 Eos % (Auto) 1.5 Baso % (Auto) 0.6 Neut # (Auto) 3.53 Lymph # (Auto) 2.52 Bucks # (Auto) 0.48 Eos # (Auto) 0.10 Baso # (Auto) 0.04 Immature Gran # (Auto) 0.01 PT Cancelled INR Cancelled APTT Cancelled PTT Ratio Cancelled D-Dimer Cancelled Sodium 141 Potassium 3.5 Chloride 107 Carbon Dioxide 28 Anion Gap 6.0 BUN 18 Creatinine 0.75 Est Cr Clr Drug Dosing 63.3 Est GFR ( Amer) 91.0 Est GFR (Non-Af Amer) 78.5 BUN/Creatinine Ratio 23.7 H Glucose 147 H POC Glucose Estimat Average Glucose Hemoglobin A1c Calcium 9.0 Magnesium 2.0 Total Bilirubin 0.5 AST 25 ALT 34 Alkaline Phosphatase 85 Troponin I < 0.015 Total Protein 7.5 Albumin 3.8 Globulin 3.7 Albumin/Globulin Ratio 1.0 Triglycerides Cholesterol LDL Cholesterol, Calc VLDL Cholesterol, Calc HDL Cholesterol Cholesterol/HDL Ratio Lipase 85 Specimen Hemolysis 04/13/20 04/13/20 04/13/20 17:10 21:08 23:13 WBC RBC Hgb Hct MCV MCH MCHC RDW Std Deviation RDW Coeff of Chris Plt Count MPV Immature Gran % (Auto) Neut % (Auto) Lymph % (Auto) Bucks % (Auto) Eos % (Auto) Baso % (Auto) Neut # (Auto) Lymph # (Auto) Bucks # (Auto) Eos # (Auto) Baso # (Auto) Immature Gran # (Auto) PT 10.9 INR 1.0 APTT 26.2 PTT Ratio 0.9 D-Dimer 400 Sodium Potassium Chloride Carbon Dioxide Anion Gap BUN Creatinine Est Cr Clr Drug Dosing Est GFR ( Amer) Est GFR (Non-Af Amer) BUN/Creatinine Ratio Glucose POC Glucose 127 H Estimat Average Glucose Hemoglobin A1c Calcium Magnesium Total Bilirubin AST ALT Alkaline Phosphatase Troponin I < 0.015 Total Protein Albumin Globulin Albumin/Globulin Ratio Triglycerides Cholesterol LDL Cholesterol, Calc VLDL Cholesterol, Calc HDL Cholesterol Cholesterol/HDL Ratio Lipase Specimen Hemolysis 04/14/20 04/14/20 04/14/20 06:54 06:54 06:54 WBC 5.72 RBC 4.53 Hgb 13.3 Hct 39.7 MCV 87.6 MCH 29.4 MCHC 33.5 RDW Std Deviation 41.6 RDW Coeff of Chris 13.0 Plt Count 225 MPV 10.0 Immature Gran % (Auto) 0.2 Neut % (Auto) 41.4 Lymph % (Auto) 44.8 Bucks % (Auto) 9.4 Eos % (Auto) 3.3 Baso % (Auto) 0.9 Neut # (Auto) 2.37 Lymph # (Auto) 2.56 Bucks # (Auto) 0.54 Eos # (Auto) 0.19 Baso # (Auto) 0.05 Immature Gran # (Auto) 0.01 PT INR APTT PTT Ratio D-Dimer Sodium 143 Potassium 4.0 Chloride 108 H Carbon Dioxide 30 Anion Gap 5.0 BUN 16 Creatinine 0.70 Est Cr Clr Drug Dosing 67.7 Est GFR ( Amer) 98.9 Est GFR (Non-Af Amer) 85.4 BUN/Creatinine Ratio 22.9 H Glucose 135 H POC Glucose Estimat Average Glucose 160 Hemoglobin A1c 7.2 H Calcium 8.9 Magnesium Total Bilirubin AST ALT Alkaline Phosphatase Troponin I < 0.015 Total Protein Albumin Globulin Albumin/Globulin Ratio Triglycerides 190 H Cholesterol 182 LDL Cholesterol, Calc 103 VLDL Cholesterol, Calc 38 HDL Cholesterol 41 Cholesterol/HDL Ratio 4 Lipase Specimen Hemolysis 04/14/20 04/14/20 04/14/20 06:54 07:13 12:27 WBC RBC Hgb Hct MCV MCH MCHC RDW Std Deviation RDW Coeff of Chris Plt Count MPV Immature Gran % (Auto) Neut % (Auto) Lymph % (Auto) Bucks % (Auto) Eos % (Auto) Baso % (Auto) Neut # (Auto) Lymph # (Auto) Bucks # (Auto) Eos # (Auto) Baso # (Auto) Immature Gran # (Auto) PT INR APTT 33.4 H PTT Ratio 1.2 D-Dimer Sodium Potassium Chloride Carbon Dioxide Anion Gap BUN Creatinine Est Cr Clr Drug Dosing Est GFR ( Amer) Est GFR (Non-Af Amer) BUN/Creatinine Ratio Glucose POC Glucose 139 H 130 H Estimat Average Glucose Hemoglobin A1c Calcium Magnesium Total Bilirubin AST ALT Alkaline Phosphatase Troponin I Total Protein Albumin Globulin Albumin/Globulin Ratio Triglycerides Cholesterol LDL Cholesterol, Calc VLDL Cholesterol, Calc HDL Cholesterol Cholesterol/HDL Ratio Lipase Specimen Hemolysis Diagnostic Findings Telemetry personally reviewed: Sinus rhythm. No arrhythmia. ECGs personally reviewed: ECG 04/13/2020 at 2:36 p.m.: Sinus rhythm [address] abnormality. ECG 04/13/2020 at 7:53 p.m.: Sinus rhythm 78 bpm. Normal ECG. ECG 04/14/2020 at 11:55 a.m.: Sinus rhythm 74 bpm. Normal ECG. Chest x-ray 04/13/2020: No acute process per Radiology. Medications Administered Current Inpatient Medications Acetaminophen (Tylenol) 650 mg PO Q4H PRN PRN Reason: Pain or Fever Stop: 05/13/20 20:16 Al Hydrox/Mg Hydrox/Simethicone (Maalox) 15 ml PO Q4H PRN PRN Reason: Dyspepsia Stop: 05/13/20 20:16 Aspirin (Ecotrin Ectab) 81 mg PO QAM [facility] Stop: 05/14/20 08:59 Last Admin: 04/14/20 08:54 Dose: 81 mg Documented by: Atorvastatin Calcium (Lipitor) 40 mg PO QPM [facility] Stop: 05/13/20 20:59 Last Admin: 04/13/20 21:09 Dose: 40 mg Documented by: Dextrose (Dextrose 50%) 25 - 50 ml IV UD PRN; Protocol PRN Reason: Hypoglycemia Protocol Stop: 05/13/20 20:16 Glucagon (Glucagen) 1 mg SQ UD PRN; Protocol PRN Reason: Hypoglycemia Protocol Stop: 05/13/20 20:16 Glucose (Dex4 Glucose) 4 - 8 tabs PO UD PRN; Protocol PRN Reason: Hypoglycemia Protocol Stop: 05/13/20 20:16 Glucose (Glucose 40%) 15 - 30 gm PO UD PRN; Protocol PRN Reason: Hypoglycemia Protocol Stop: 05/13/20 20:16 Insulin Aspart (Novolog Flexpen) 0 units SC ACHS [facility] Stop: 05/13/20 20:59 Last Admin: 04/14/20 13:40 Dose: Not Given Documented by: Levothyroxine Sodium (Synthroid) 150 mcg PO [email or web address] [facility] Stop: 05/16/20 06:29 Levothyroxine Sodium (Synthroid) 125 mcg PO [email or web address]@[id number] [facility] Stop: 05/14/20 06:29 Last Admin: 04/14/20 06:15 Dose: 125 mcg Documented by: Lisinopril (Zestril) 20 mg PO QAM [facility] Stop: 05/14/20 08:59 Last Admin: 04/14/20 08:56 Dose: 20 mg Documented by: Magnesium Hydroxide (Milk Of Magnesia) 30 ml PO Q12H PRN PRN Reason: Constipation Stop: 05/13/20 20:16 Metoprolol Tartrate (Lopressor) 25 mg PO BID [facility] Stop: 05/14/20 08:59 Last Admin: 04/14/20 08:54 Dose: 25 mg Documented by: Miscellaneous (Carbohydrates For Hypoglycemia) 15 - 30 gm PO UD PRN PRN Reason: Hypoglycemia Protocol Stop: 05/13/20 20:16 Multivitamins (Multivitamin Tab) 1 tab PO DAILY [facility] Stop: 05/14/20 08:59 Last Admin: 04/14/20 08:54 Dose: 1 tab Documented by: Nitroglycerin (Nitrostat) 0.4 mg SL PRN PRN PRN Reason: Chest Pain Stop: 05/13/20 20:39 Ondansetron HCl (Zofran) 4 mg IV Q6H PRN PRN Reason: Nausea Stop: 05/13/20 20:16 Pantoprazole Sodium (Protonix) 40 mg PO DAILY [facility]; Protocol Stop: 05/14/20 08:59 Last Admin: 04/14/20 08:54 Dose: 40 mg Documented by: Polyethylene Glycol (Miralax Powder Packet) 17 gm PO DAILY PRN PRN Reason: Constipation Stop: 05/13/20 20:16 PG Care Time/CCT Total # of Minutes Spent Total Time Spent with Patient: Total time spent is greater than 50% in coordination of care (as documented) at patient's floor/unit and/or counseling patient: Coding Level of Care Code 32928 Office/Outpt Visit, New Diagnoses Chest pain I20.0 Chest pain type: chest pain due to myocardial ischemia Ischemic chest pain type: unstable angina pectoris Benign essential hypertension I10 Time Spent (min) 45 (1) Chest pain Chest pain type: chest pain due to myocardial ischemia Ischemic chest pain type: unstable angina pectoris Qualified Code(s): I20.0 - Unstable angina
--- NOTE | 2020-04-14 14:24 | XCELERA ---
[id number] \\[id number]
--- NOTE | 2020-04-14 16:13 | Discharge Summary ---
Date of Service April 14, 2020 Admission HPI Per Admitting Provider Kristen Jacobs is a 75 year old female with PMHx T2DM (borderline), hyperlipidemia, obesity, hypertension who presents to the ER with 4 days of exertional chest pain. She reports increasing severity, frequency and duration of this exertional pain over these 4 days. Last episode was today at 11:30am with minimal exertion (cutting hair). Longest time it has lasted is 10 minutes, always relieves with rest. Unknown how many episodes she is having a day but has been unable to exert herself significantly without the chest pain since it started 4 days ago. She was taking a daily aspirin for primary prevention up until 1 year ago. With this ongoing chest pain she has been taking aspirin 81mg PO usually twice daily. She has had one episode after eating an egg salad with relief with belching although this was only the one occasion and the rest have been very exertional related. She has a history of Weber's esophagus which resolved with omeprazole use (EGD was approximately 15 years ago). She reports her heartburn is under control with omeprazole and she has not been eating any exacerbating foods. Of note she also has claudication (bilateral calf pain on walking) which she has previously felt was her poor footwear with benign fibrous lumps in her ankles making her gait poor. This has been going on for at least the last year. She is a former smoker (although only for 9 months after her divorce), 1- pack/d ay, quit 1984. Hyperlipidemia - PCP recommended statin but patient refused. Diabetes, HbA1C recently diagnosed in September and refused metformin (she has heard too many bad things about this). Family history: Father with CAD ?started around 64-65yo angina, bypass Mother in 60s had a stroke Brother ?heart issue, no bypass or stents, diabetes, Sister - none Principal Diagnosis Angina Discharge Exam Constitutional WD/WN, vitals as above Eyes PERRL, conjunctivae normal, anicteric sclerae Respiratory normal respiratory effort, lungs clear to auscultation Cardiovascular Rate/Rhythm: regular rate and regular rhythm Heart Sounds: normal S1 and normal S2; no gallop, no murmur and no cardiac rub Vessels: normal peripheral pulses; no JVD Extremities: no pedal edema Gastrointestinal (Abdomen) normal bowel sounds, soft, nontender, no hepatosplenomegaly Skin no rashes, warm and dry Psychiatric A+Ox3, euthymic affect Discharge Data Allergies Allergy/AdvReac Type Severity Reaction Status Date / Time Cephalosporins Allergy Unknown Unknown Verified 04/13/20 16:24 CEPHALEXIN HCL (Generic Allergy Unknown Y Uncoded 04/13/20 16:24 Allergy) KEFLEX=HIVES Allergy Unknown Unknown Uncoded 04/13/20 16:24 Consultations 04/13/20 20:17 Consult Cardiology Routine Hospital Course (1) Chest pain: Kristen Jacobs is a 75 year old female with PMHx T2DM (borderline), hyperlipidemia, obesity, hypertension who presents to the ER with 4 days of exertional chest pain. Chest pain: - typical chest pain features with exercise intolerance - troponin negative x2 - Stress echo did not demonstrate ischemic changes at 82% MPHR - Lipid profile: Total cholesterol 190, LDL-C 103, HDL 41 - A1c: 7.2 - 10-year ASCVD risk score 31.0%; advised patient that with this risk major cardiac or stroke event, starting a high intensity statin is indicated -patient declined start of Atorvastatin 80mg, due to neighbors experiencing myalgia while on statin - started Metoprolol 25mg BID - continue Lisinopril 20 - continue ASA 81 daily - given SL nitroglycerin for continued anginal episodes - advised return for evaluation if further worsening/decline in exercise tolerance (2) Hyperlipidemia: Total Time Total Time Spent Total Time Spent (In Minutes): <30 Discharge Plan Discharge Items Patient Disposition: Home - Self-Care Reason For Visit: UNSTABLE ANGINA Discharge Diagnosis: Angina Activity: Per Instructions section Non-emergency contact: Primary Care Provider Call non-emergency contact if: you have any medication questions, your symptoms worsen and you have a fever Follow-up/Referrals: Kalpana Barr MD [Primary Care Provider] - 04/21/20 11:30 am Diet: Heart Healthy Addtl Attending Provider Instructions: You were seen and admitted for chest pain on exercise and shortness of breath; during this admission, we monitored your heart function and your heart enzymes did not demonstrate changes to your heart. We also had the cigarette carton sealer evaluate the chest pain and they were not concerned at this time that there was overt damage to your heart. However, the concerns about your overall risks of further damage to your heart remain higher than we would like for it to be at this point in time. As a result of this, we are discharging you on new medications, you should continue to take Aspirin 81mg daily, with the new medications being started on Atorvastatin 80mg daily, Metoprolol 25mg twice a day, and Nitroglycerin every 5 minutes as needed for recurrence of chest pain. Over the next, several weeks you should slowly start to increase your exercise regimen, while monitoring for recurrence of chest pain. If you continue to feel that you are unable to increase the amount of exercise you can perform, or feel like your ability to exercise is decreasing then you should return for further evaluation. Pending Studies at Discharge: No Stand-Alone Forms: My [facility], Smoking Cessation Medications and DC Order Prescriptions: New aspirin 81 mg Tablet,Delayed Release (Dr/Ec) 81 mg PO QAM 30 Days Qty: 30 RF: 0 metoprolol tartrate 25 mg Tablet 25 mg PO BID 30 Days Qty: 60 RF: 0 atorvastatin 80 mg tablet 80 mg PO DAILY Qty: 30 RF: 0 nitroglycerin 0.4 mg tablet, sublingual 0.4 mg sublingual Q5M PRN (Reason: chest pain) Qty: 10 RF: 0 Continued lisinopril-hydrochlorothiazide 20-12.5 mg tablet 1 tab PO DAILY Qty: 90 RF: 3 meloxicam 7.5 mg tablet 7.5 mg PO DAILY PRN (Reason: pain) Qty: 90 RF: 0 multivitamin [Daily Multiple] tablet 1 tab PO DAILY Qty: 90 RF: 3 levothyroxine 125 mcg tablet 125 mcg PO .COMPLEX Qty: 90 RF: 3 omeprazole 20 mg capsule,delayed release(DR/EC) 20 mg PO DAILY Qty: 90 RF: 3 levothyroxine 150 mcg tablet 150 mcg PO .QSUNDAY RF: 0 fluticasone propionate 50 mcg/actuation spray,suspension 2 sprays intranasal DAILY PRN (Reason: Nasal Congestion) RF: 0 Discharge Orders: Discharge Order (Routine); Ordered 04/14/20 Ordered By: Joni Sr/Other Patient Handouts: Long-Term Complications of Diabetes, Oral Medicines for Type 2 Diabetes, Healthy Meals for Diabetes, Diabetes: The Benefits of Exercise, Managing Diabetes: The A1C Test Admission Data Admit Date/Time: 04/13/20 19:17 Attending Provider: Daniel Rodriguez Admit Provider: Shan Cueva Primary Care Provider: Kalpana Barr Other Providers: Pedro Rodriguez ; Shan Cueva Other Interventions: Discharge Summary Assessment (RN) Last Done: 04/14/20 16:07 DC Date/Time DO NOT enter until pt leaves facility: 04/14/20 17:21 Supervising Physician Co-Signing Physician Notes I personally examined the patient and verified all louis points of history and exam, discussed case, and agree with decision making with Dr Samuels. feeling better and would like to go home. stress negative at 82% MPHR vitals noted nad heent nc at mmm breathing unlabored no accessory muscles good effort skin no rashes no pallor or icterus neuro no focal deficits MARQUEZ - concerning for angina but cardiac w/u negative, making large areas of ischemia quite unlikely. still has high risk and other areas of vascular disease - so med management for aggressive risk reduction will likely provide a significant benefit. on ACEi and ASA, add statin and beta juan carlos. unfortunately in discussions with pt, she creates a false equivalency of expertise as she notes that her neighbors all tell her not to take statins because they make you ache. tried to explain the science, tried to explain true risks/benefits and plaque stabilization - but not clear that she was really listening to learn the scientific perspective or if she was just listening to humor me. tried to discuss extensively. was a little more attentive in conversations about lifestyle change - tried to guide away from starchy carbs and saturated fats, tried to encourage goal of 30mins exercise daily. disussed that we would want PCP to keep a close eye on her w MARQUEZ type symptoms - if things improve then far less to worry about, but if no improvement or a reduction in exercise tolerance - would want her evaluated right away. stable for home, otherwise as above and as per discharge instructions. Resident Activity Tracking Resident Involvement: Resident Care Provided Care Provided: Adult Hospital Medicine
--- NOTE | 2020-04-14 19:13 | Communication Note ---
Date of Service: April 14, 2020 after findings of negative cardiac enzymes/cardiology consult/negative stress test, with hindsight patient would have been appropriate for observation - jaquelin kat in status requested as code 44 by case management.
--- NOTE | 2020-04-14 19:14 | Billing Data ---
Date of Service April 14, 2020 Coding Level of Care Code 81961 OBS Care - Discharge
--- NOTE | 2020-04-15 07:02 | Electrocardiogram Report ---
Test Reason : Blood Pressure : / mmHG Vent. Rate : 078 BPM Atrial Rate : 078 BPM P-R Int : 176 ms QRS Dur : 086 ms QT Int : 390 ms P-R-T Axes : 035 007 017 degrees QTc Int : 444 ms Normal sinus rhythm Normal ECG When compared with ECG of 13-APR-2020 14:36, No significant change was found Confirmed by Pedro Rodriguez ([id number]) on 04/15/2020 7:02:36 AM Referred By: Kalpana Barr Confirmed By:Pedro Rodriguez
--- NOTE | 2020-04-15 07:24 | Electrocardiogram Report ---
Test Reason : Blood Pressure : / mmHG Vent. Rate : 074 BPM Atrial Rate : 074 BPM P-R Int : 184 ms QRS Dur : 080 ms QT Int : 388 ms P-R-T Axes : 060 060 051 degrees QTc Int : 430 ms Normal sinus rhythm Normal ECG When compared with ECG of 13-APR-2020 19:53, Nonspecific T wave abnormality no longer evident in Inferior leads Confirmed by Pedro Rodriguez ([id number]) on 04/15/2020 7:24:08 AM Referred By: Kalpana Barr Confirmed By:Pedro Rodriguez
--- NOTE | 2020-04-15 09:37 | History & Physical Bridge Note ---
Date of Service April 15, 2020 History & Physical Bridge Note On review, after negative trops, cardiology opinion, and neg stress test, obs status would have been appropriate for this pt
[2020-04-16] MEDS ORDERED: LEVOTHYROXINE SODIUM 150 MCG TABLET PO SCH (06:30)
--- NOTE | 2020-04-19 12:10 | Coding Query ---
CODING QUERY To promote full compliance with coding requirements relating to patient care, provider participation is requested in all cases of feather shaper uncertainty. Please assist us with the question(s) below: Coding Question(s): There is documentation on the Discharge Summary Principal Diagnosis area of Angina with documentation underneath in the Supervising Physician area of, "MARQUEZ - concerning for angina but cardiac w/u negative, making large areas of ischemia quite unlikely" and documentation in Cardiology Consultation of, "Stress echo has been completed. There were no ischemic changes noted on stress echo imaging. Her exercise tolerance was below expected however she did not experience any chest discomfort and admits that that is the most strenuous exercise that she has done in some time. Given that her chest discomfort did not return during strenuous activity with normal stress echo imaging, would not pursue cardiac catheterization at this time. Recommend further evaluation for noncardiac chest pain. If her symptoms worsen or persist without identifiable cause, further evaluation could be considered at that time.". Due to conflicting documentation on the Discharge Summary, please clarify below in your clinical opinion, regarding the chest pain/Angina. ( ) Angina is Ruled-Out and chest pain is likely non-cardiac ( x ) Possible Angina ( ) Other: Please Specify Physician's Response(s): Thank you Sera Hdez Principal Diagnosis: "that condition established after study, to be chiefly responsible for occasioning the admission of the patient to the hospital for care." Co-Existing Principal Diagnosis: "when two or more diagnoses equally meet the criteria for principal diagnosis as determined by the circumstances of admission, diagnostic work up, and/or therapy provided, and the Alphabetic Index, Tabular List, or another coding guideline does not provide sequencing direction, any one of the diagnoses may be sequenced first." "When the physician has documented what appears to be a current diagnosis in the body of the record, but has not included the diagnosis in the final diagnostic statement, the physician should be asked whether the diagnosis should be added." (Source [facility]oding [facility] 2 QTR90. p3-4) ALEX
== END 2020-04-14 17:21 | disposition home or self-care (01) | DRG 311 ==
LOC: ED 14:29 → 2S 19:17 → SUATTDRO 19:17 → 2S 19:55